=== PATIENT | female | born 1940 | race Asian ===

== ENCOUNTER 2018-07-01 18:59 | Emergency (ER) | payer OTHER, MEDICAID ==
[~2018-07-01] VITALS: Ht 154.9 cm; Wt 50.1 kg
--- NOTE | 2018-07-01 19:22 | NUR ---
PT HERE FOR A DIZZY SPELL AND VERTIGO X1 DAY. PT REPORTS HX OF HTN AND HAS NOT TAKEN MEDICAITONS IN OVER 2 YEARS. PT REPORTS TAKING SOME STIMULANT COLD MEDICINE FOR A COLD SHE HAS BEEN HAVING. PT REPORTS SHE HAS NO CP, SOB, OR PALPTATIONS. PT REPORTS SHE JSUT DOESNT FEEL WELL AND DIZZYNESS MADE HER CONCERNED. PT CONNECTED TO MONITORS AND CALL LIGHT IN REACH. AWAITING FURTHER ORDERS.
[2018-07-01] MEDS ORDERED: MECLIZINE PO (19:24)
[2018-07-01] MEDS ORDERED: EYE MEDS EACHEYE (19:24)
[2018-07-01] MEDS ORDERED: DM H PO (19:24)
[2018-07-01] MEDS ORDERED: ATOR40TA78 PO (19:24)
--- NOTE | 2018-07-01 20:08 | NUR ---
BP IMPROVED AT THIS TIME.
[2018-07-01 20:16] LABS: BASOPHILS # (AUTO) 0.03 x10^3/uL (0-0.1); BASOPHILS % (AUTO) 0 % (0-1); EOSINOPHILS # (AUTO) 0.14 x10^3/uL (0-0.4); EOSINOPHILS % (AUTO) 2 % (1-7); LYMPHOCYTES # (AUTO) 1.68 x10^3/uL (1-3.4); LYMPHOCYTES % (AUTO) 18 % (22-44); MD NO; MEAN CORPUSCULAR HEMOGLOBIN 32.5 pg (27.0-34.8); MEAN CORPUSCULAR HGB CONC 34.3 g/dL (32.4-35.8); MEAN CORPUSCULAR VOLUME 94.6 fL (80-100); MEAN PLATELET VOLUME 7.7 fL (7.4-10.4); MONOCYTES % (AUTO) 5 % (2-9); NEUTROPHILS # (AUTO) 7.04 x10^3/uL (1.8-6.8); NEUTROPHILS % (AUTO) 75 % (42-75); PLATELET COUNT 371 x10^3/uL (130-400); RED BLOOD COUNT 4.36 x10^6/uL (3.82-5.3); RED CELL DISTRIBUTION WIDTH 13.9 % (9.6-15.2)
[2018-07-01 20:26] LABS: ALANINE AMINOTRANSFERASE 39 U/L (12-78); ALBUMIN 3.5 g/dL (3.4-5.0); ANION GAP 7 mmol/L (5-15); CALCIUM 8.6 mg/dL (8.5-10.1); CHLORIDE 108 mmol/L (98-107); CREATININE 1.08 mg/dL (0.55-1.02)
[2018-07-01 20:30] LABS: ALKALINE PHOSPHATASE 113 U/L (45-117); BILIRUBIN,TOTAL 0.6 mg/dL (0.2-1.0); TOTAL PROTEIN 7.1 g/dL (6.4-8.2); TROPONIN I < 0.015 ng/mL (0.000-0.045)
[2018-07-01 20:33] VITALS: BP 154/88
--- NOTE | 2018-07-01 20:33 | NUR ---
UA SENT TO LAB
[2018-07-01 20:37] LABS: MICROSCOPIC NOT IND
[2018-07-01 20:40] LABS: CULTURE INDICATED? NO
--- NOTE | 2018-07-01 20:59 | NUR ---
Patient/Caregiver given discharge instructions and they have confirmed that they understand the instructions. Patient ambulatory with steady gait.
== END 2018-07-01 21:46 | disposition home or self-care (01) ==
LOC: ED 21:02
DX: I10 Essential (primary) hypertension (principal); R42 Dizziness and giddiness
CPT/HCPCS: 36415; 71046; 80053; 81003; 84484; 85025; 93005; 99284

== ENCOUNTER 2020-07-11 12:52 | Emergency (ER) | payer MEDICARE, MEDICAID ==
[~2020-07-11] VITALS: Ht 154.9 cm; Wt 51.8 kg
[~2020-07-11 12:52] MED LIST: ATOR40TA78 PO; DM H PO; EYE MEDS EACHEYE; MECLIZINE PO
--- NOTE | 2020-07-11 13:26 | NUR ---
UPPER RIGHT QUADRANT ABD PAIN. SEEN AT URGENT CARE. WAS TAKING PEPTO AND UC DOC TOLD TO STOP TAKING PEPTO. PT IS CONCERNED STOOL IS BLACK. PT STATES SHE HAS BEEN TIRED AND WEAK FOR THE LAST WEEK
[2020-07-11] MEDS ORDERED: SODIUM CHLORIDE FLUSH 10ML SYR IVF ONE (14:00)
[2020-07-11] MEDS ORDERED: MAALOX/HYOSCYAMINE/LIDOCAINE 45 ML BTL PO ONE (14:00)
[2020-07-11] MEDS ORDERED: FAMOTIDINE 20 MG/2 ML IVPush ONE (14:00)
[2020-07-11] MEDS ORDERED: FAMOTIDINE 20 MG/2 ML ONE (14:09)
[2020-07-11] MEDS ORDERED: MAALOX/HYOSCYAMINE/LIDOCAINE 45 ML BTL ONE (14:09)
[2020-07-11 14:20] LABS: BASOPHILS % (AUTO) 0 % (0-1); EOSINOPHILS % (AUTO) 0 % (1-7); LYMPHOCYTES % (AUTO) 9 % (22-44); MEAN CORPUSCULAR HEMOGLOBIN 32.2 pg (27.0-34.8); MEAN CORPUSCULAR HGB CONC 34.7 g/dL (32.4-35.8); MEAN PLATELET VOLUME 7.8 fL (7.4-10.4); MONOCYTES % (AUTO) 9 % (2-9); NEUTROPHILS % (AUTO) 83 % (42-75); PLATELET COUNT 291 x10^3/uL (130-400); RED BLOOD COUNT 4.14 x10^6/uL (3.82-5.3); RED CELL DISTRIBUTION WIDTH 13.2 % (9.6-15.2)
[2020-07-11 14:21] LABS: MD NO
[2020-07-11 14:32] LABS: ALANINE AMINOTRANSFERASE 58 U/L (12-78); ANION GAP 10 mmol/L (5-15); CALCIUM 8.8 mg/dL (8.5-10.1); CHLORIDE 99 mmol/L (98-107); CREATININE 1.02 mg/dL (0.55-1.02)
[2020-07-11 14:35] LABS: ALKALINE PHOSPHATASE 158 U/L (45-117); BILIRUBIN,TOTAL 0.9 mg/dL (0.2-1.0); TOTAL PROTEIN 7.8 g/dL (6.4-8.2)
--- NOTE | 2020-07-11 14:51 | NUR ---
PT IN BED NO DISTRESS
--- NOTE | 2020-07-11 14:56 | NUR ---
PT UNABLE TO VOID
--- NOTE | 2020-07-11 16:04 | NUR ---
PT UP TO BATHROOM UA SENT
--- NOTE | 2020-07-11 16:04 | NUR ---
US IN ROOM
[2020-07-11 16:26] LABS: MICROSCOPIC INDICATED
--- NOTE | 2020-07-11 17:07 | NUR ---
PT PROVED WITH WARM BLANKETS. RESTING IN [facility]. NAD
[2020-07-11 18:19] VITALS: BP 128/72
== END 2020-07-11 18:25 | disposition home or self-care (01) ==
LOC: ED 18:16
DX: U07.1 COVID-19 (principal); J18.0 Bronchopneumonia, unspecified organism; J18.9 Pneumonia, unspecified organism; R10.13 Epigastric pain; R94.5 Abnormal results of liver function studies; R53.1 Weakness; I10 Essential (primary) hypertension; K21.9 Gastro-esophageal reflux disease without esophagitis; E78.5 Hyperlipidemia, unspecified
CPT/HCPCS: 36415; 71045; 76700; 80053; 81001; 83690; 83880; 85025; 87635; 93005; 96374; 99285

== ENCOUNTER 2020-08-19 10:52 | Emergency (ER) | payer MEDICARE, MEDICAID ==
[~2020-08-19] VITALS: Ht 154.9 cm; Wt 50.3 kg
--- NOTE | 2020-08-19 11:06 | NUR ---
PT HAS CO LEFT FOOT NUMBNESS AND TINGLING. NO INJURY
[2020-08-19 11:11] VITALS: BP 166/123
[2020-08-19] MEDS ORDERED: OMEP-110 PO (11:21)
[2020-08-19] MEDS ORDERED: PROP1DRO6 OP (11:21)
[2020-08-19] MEDS ORDERED: LOSA25TA25 PO (11:21)
[2020-08-19] MEDS ORDERED: MELO15TA24 PO (11:21)
[2020-08-19] MEDS ORDERED: BIMA2.5D OP (11:21)
[2020-08-19] MEDS ORDERED: MECL-101 PO (11:21)
[2020-08-19] MEDS ORDERED: CALC-500 PO (11:21)
[2020-08-19] MEDS ORDERED: BRIM10DR15 OP (11:21)
[2020-08-19] MEDS ORDERED: CLOB15CR19 TP (11:21)
[2020-08-19] MEDS ORDERED: VIT1TABL32 PO (11:21)
--- NOTE | 2020-08-19 11:49 | NUR ---
Patient given discharge instructions and they have confirmed that they understand the instructions. Patient ambulatory with steady gait.
== END 2020-08-19 11:50 | disposition home or self-care (01) ==
LOC: ED 11:26
DX: G57.32 Lesion of lateral popliteal nerve, left lower limb (principal); M54.5 Low back pain; M25.562 Pain in left knee; I10 Essential (primary) hypertension; R20.2 Paresthesia of skin
CPT/HCPCS: 99281

== ENCOUNTER 2020-08-31 20:45 | Observation (INO) | payer MEDICARE, MEDICAID ==
[~2020-08-31] VITALS: Ht 154.9 cm; Wt 52.8 kg
[~2020-08-31 20:45] MED LIST changes: +BIMA2.5D OP; +BRIM10DR15 OP; +CALC-500 PO; +CLOB15CR19 TP; +LOSA25TA25 PO; +MECL-101 PO; +MELO15TA24 PO; +OMEP-110 PO; +PROP1DRO6 OP; +VIT1TABL32 PO
[2020-08-31] MEDS ORDERED: LABETALOL 5MG/ML, 20ML IVPush ONE (21:00)
[2020-08-31] MEDS ORDERED: NITROGLYCERIN OINT 2%, 1GM TP ONE ×2 (21:00→21:32)
[2020-08-31] MEDS ORDERED: SODIUM CHLORIDE FLUSH 10ML SYR IVF ONE (21:00)
--- NOTE | 2020-08-31 21:25 | NUR ---
PT STATES HIGH BP AND HR SINCE THIS MORINING CHEST SINCE [address].
[2020-08-31 21:28] LABS: BASOPHILS % (AUTO) 1 % (0-1); EOSINOPHILS % (AUTO) 3 % (1-7); LYMPHOCYTES % (AUTO) 22 % (22-44); MEAN CORPUSCULAR HGB CONC 33.9 g/dL (32.4-35.8); MEAN PLATELET VOLUME 7.9 fL (7.4-10.4); MONOCYTES % (AUTO) 9 % (2-9); NEUTROPHILS % (AUTO) 66 % (42-75); PLATELET COUNT 285 x10^3/uL (130-400); RED BLOOD COUNT 4.42 x10^6/uL (3.82-5.3)
[2020-08-31] MEDS ORDERED: LABETALOL 5MG/ML, 20ML ONE (21:31)
[2020-08-31 21:35] LABS: MD NO
[2020-08-31 21:38] LABS: ALANINE AMINOTRANSFERASE 23 U/L (12-78); ALBUMIN 3.6 g/dL (3.4-5.0); ANION GAP 6 mmol/L (5-15); CALCIUM 9.1 mg/dL (8.5-10.1); CHLORIDE 111 mmol/L (98-107)
[2020-08-31 21:43] LABS: ALKALINE PHOSPHATASE 130 U/L (45-117); BILIRUBIN,TOTAL 0.6 mg/dL (0.2-1.0); CREATININE 1.11 mg/dL (0.55-1.02); TOTAL PROTEIN 7.6 g/dL (6.4-8.2); TROPONIN I < 0.015 ng/mL (0.000-0.045)
[2020-08-31] MEDS ORDERED: CEFTRIAXONE PMX 1GM/50ML 50 ML IVPB ONE (22:00)
[2020-08-31] MEDS ORDERED: AZITHROMYCIN 500 MG in SODIUM CHLORIDE 0.9% 250 ML IVPB ONE (22:00)
[2020-08-31] MEDS ORDERED: CEFTRIAXONE PMX 1GM/50ML 50 ML ONE (22:25)
--- NOTE | 2020-08-31 22:25 | NUR ---
[facility] AT TO EVAL PT. FOR ADMISSION.
--- NOTE | 2020-08-31 22:42 | NUR ---
REPORT GIVEN TO FAUSTINO HERNANDEZ. GAVE RN OPORTUNITY TO ASK QUESTIONS.
--- NOTE | 2020-08-31 22:44 | NUR ---
ENDORSED TO FLOOR RN NEED FOR ZITHROMAX WHEN ROCEPHIN IS COMPLETED.
[2020-08-31 22:59] VITALS: BP 144/90
[2020-08-31] MEDS ORDERED: TEMPLATE NON-FORMULARY MED. (Bimatoprost (Lumigan) 1 DROP) OP SCH (23:00)
[2020-08-31] MEDS ORDERED: NITROGLYCERIN 0.4 MG BOTTLE (25 TABS) SL PRN (23:00)
[2020-08-31] MEDS ORDERED: morphine SULFATE 10 MG/ML, 1ML IVPush PRN (23:00)
[2020-08-31] MEDS ORDERED: NITROGLYCERIN 0.4 MG/SPRAY SL PRN (23:00)
[2020-08-31] MEDS ORDERED: hydrALAzine 20 MG/ML, 1ML IV PRN (23:00)
[2020-08-31] MEDS ORDERED: ATORVASTATIN 40 MG TABLET PO SCH (23:00)
[2020-08-31 23:24] LABS: CHOLESTEROL, TOTAL 194 mg/dL (140-239); TRIGLYCERIDES 135 mg/dL (50-200); VLDL CHOLESTEROL 27 mg/dL (0-25)
[2020-08-31 23:27] LABS: HDL CHOL % 25 % (28-40); HDL CHOLESTEROL (DIRECT) 48 mg/dL (40-60); LDL CHOLESTEROL,CALCULATED 119 mg/dL (54-169); LDL/HDL RATIO 2.5 (0.5-3.0); TROPONIN I < 0.015 ng/mL (0.000-0.045)
[2020-09-01] MEDS: SODIUM CHLORIDE FLUSH 10ML SYR IVF SCH ×2 (00:34→11:56)
[2020-09-01 01:42] VITALS: BP 149/87
[2020-09-01 02:25] LABS: TROPONIN I < 0.015 ng/mL (0.000-0.045)
[2020-09-01] MEDS ORDERED: ASPIRIN 325 MG TABLET EC PO SCH (06:00)
[2020-09-01 06:45] VITALS: BP 117/77
[2020-09-01] MEDS ORDERED: REGADENOSON 0.4 MG/5 ML SYRINGE ONE (08:13)
[2020-09-01] MEDS ORDERED: LOSARTAN 50MG TABLET PO SCH (09:00)
[2020-09-01 11:52] VITALS: BP 158/73
[2020-09-01] MEDS ORDERED: AZIT250T PO (14:23)
[2020-09-01] MEDS ORDERED: CEFD300C37 PO (14:23)
[2020-09-01] MEDS ORDERED: CARV3.12 PO (17:05)
== END 2020-09-01 15:26 | disposition home or self-care (01) ==
LOC: ED 22:13 → INTOOBSV 22:20 → EDIP 22:20 → 4WST 22:49 → DCLOUNGE 09-01 15:13 → UNDODISIN 09-01 15:26
PROVIDERS: ADMIT Internal Medicine; ATTEND Family Medicine
DX: R07.9 Chest pain, unspecified (principal); E78.5 Hyperlipidemia, unspecified; I16.0 Hypertensive urgency; J44.0 Chronic obstructive pulmonary disease with (acute) lower respiratory infection; I50.30 Unspecified diastolic (congestive) heart failure; J15.9 Unspecified bacterial pneumonia; I11.0 Hypertensive heart disease with heart failure; I70.0 Atherosclerosis of aorta; Z79.899 Other long term (current) drug therapy; Z82.49 Family history of ischemic heart disease and other diseases of the circulatory system
CPT/HCPCS: 36415; 71045; 78452; 80053; 80061; 83880; 84484; 85025; 87040; 93005; 93017; 93306; 96365; 96367; 96375; 99285; A9502; G0378; J0456; J0696; J2785; J7050; 96374